=== PATIENT | female | born 1995 | race African-American/Black ===

== ENCOUNTER 2021-10-15 14:27 | Emergency (ER) | payer MEDICAID ==
[~2021-10-15] VITALS: Ht 170.2 cm; Wt 56.0 kg
[2021-10-15 14:33] VITALS: BP 135/93
[2021-10-15] MEDS ORDERED: METRONIDAZOLE 500MG TABLET PO ONE (14:45)
[2021-10-15] MEDS ORDERED: CEFTRIAXONE SODIUM 500 MG/VIAL IM ONE (14:45)
[2021-10-15] MEDS ORDERED: AZITHROMYCIN 500 MG TABLET PO ONE (14:45)
== END 2021-10-15 16:29 | disposition left against medical advice (07) ==
LOC: ER 14:27
DX: N89.8 Other specified noninflammatory disorders of vagina (principal); R30.0 Dysuria
CPT/HCPCS: 81025; 87210; 87491; 87591; 96372; 99283; J0696

== ENCOUNTER 2021-11-08 10:59 | Emergency (ER) | payer MEDICAID ==
[~2021-11-08] VITALS: Ht 170.2 cm; Wt 56.0 kg
[2021-11-08 11:07] VITALS: BP 138/95
[2021-11-08] MEDS ORDERED: PREDNISONE 20MG TABLET PO STA (11:11)
[2021-11-08] MEDS ORDERED: IPRATROPIUM BROMIDE (0.02%) 0.5MG/2.5ML NEB HHN STA (11:11)
[2021-11-08] MEDS ORDERED: ALBUTEROL (0.083%) 2.5MG/3ML NEB HHN SCH (11:30)
[2021-11-08] MEDS ORDERED: P50 MT (13:06)
[2021-11-08] MEDS ORDERED: ALBU6.7H9 INH (13:06)
== END 2021-11-08 13:28 | disposition home or self-care (01) ==
LOC: ER 10:59
DX: J45.901 Unspecified asthma with (acute) exacerbation (principal)
CPT/HCPCS: 81025; 93005; 94640; 99283; J7512; Z7610